=== PATIENT | male | born 1975 | race Caucasian/White ===

== ENCOUNTER → 2017-04-16 14:31 | Outpatient (CLI) | payer MEDICARE, SELFPAY ==
[2017-04-16 14:41] LABS: Microscopic, Urine URINE MICROSCOPIC (MICROSCOPIC)
[2017-04-16 14:53] LABS: Appearance,Urine CLOUDY (Clear); Blood, Urine TRACE-I (Negative); Color,Urine ORANGE (Yellow); Glucose,Urine (UA) Negative (Negative); Ketones,Urine TRACE (Negative); Leukocyte Esterase,Urine 2+ (Negative); Nitrate,Urine POSITIVE (Negative); Protein,Urine TRACE (Negative); Specific Gravity, Urine 1.025 (1.005-1.030); Urobilinogen,Urine >=8.0 EU/dl (0.2)
[2017-04-16 15:17] LABS: Bilirubin,Urine 2+ (Negative)
[2017-04-16 15:45] LABS: Bacteria,Urine 4+ /lpf; Mucus,Urine 2+ /lpf; Squamous Epithelial Cell,Urine Occasional #/hpf (0-5); WBC,Urine 20-50 #/hpf (0-3)
== END ==
PROVIDERS: PCP Family Medicine; Visit Provider Family Medicine
DX: B96.1 Klebsiella pneumoniae [K. pneumoniae] as the cause of diseases classified elsewhere (principal); N39.0 Urinary tract infection, site not specified
CPT/HCPCS: 81001; 87070; 87086; 87088; 87186; 93005

== ENCOUNTER 2017-04-16 14:57 | Observation (INO) | payer MEDICARE, SELFPAY ==
[2017-04-16 14:58] VITALS: BP 108/89; PULSE 142; RESP 22; TEMP 36.5; O2SAT 99; BMI 17.9
--- NOTE | 2017-04-16 15:08 | HMH.EDGENADL ---
ED Disposition Clinical Impression: Chest pain, Palpitation, Dehydration Disposition: Still a Patient Condition on Discharge: Fair Referrals: Osiel Carlson [Primary Care Provider] - - Critical Care Critical Care Time: No Attestation: On 04/16/17, the high probability of a clinically significant, sudden or life threatening deterioration of the following system(s) required my full and direct attention, intervention and personal management. The time I documented below is in addition to time spent performing reported procedures but includes the following listed in this critical care notation. Medical Decision Making - Medical Records Medical records reviewed: Yes: I reviewed the patient's medical records. Vital Signs: 04/16/17 14:58 Temperature 97.7 F Temperature Source Temporal Artery Scan Pulse Rate [Right Brachial] 142 H Respiratory Rate 22 Blood Pressure [Right Arm] 108/89 Blood Pressure Mean [Right Arm] 95 Blood Pressure Source [Right Arm] Automatic Cuff Blood Pressure Position [Right Arm] Sitting 02 Sat by Pulse Oximetry 99 Oxygen Delivery Method Room Air Nasal Cannula - Lab Data Lab Results 04/16/17 14:40: Urine Opiates Screen Negative, Ur Barbituates Screen Negative, Ur Phencyclidine Scrn Negative, Ur Amphetamines Screen Negative, U Methamphetamines Scrn Negative, U Benzodiazepines Scrn Negative, Urine Cocaine Screen Negative, U Marijuana (THC) Screen Negative 04/16/17 15:10: WBC 8.9, RBC 3.16 L, Hgb 11.6 L, Hct 34.6 L, MCV 109.5 H, MCH 36.7 H, MCHC 33.5, RDW 18.3 H, Plt Count 175, MPV 8.3, Neut % (Auto) 54.4, Lymph % (Auto) 36.0, Bureau % (Auto) 6.2, Eos % (Auto) 2.9, Baso % (Auto) 0.6, Neut # (Auto) 4.9, Lymph # (Auto) 3.2, Bureau # (Auto) 0.6, Eos # (Auto) 0.3, Baso # (Auto) 0.1 04/16/17 15:10: Sodium 135 L, Potassium 3.1 L, Chloride 103, Carbon Dioxide 19 L, Anion Gap 16.1 H, BUN 11, Creatinine 0.65 L, Estimated Creat Clear 116, Estimated GFR 137, Est GFR ( Amer) 165, Glucose 127 H, Calcium 9.1, Total Bilirubin 0.7, AST 29, ALT 25, Alkaline Phosphatase 135 H, Total Creatine Kinase 17 L, CK-MB (CK-2) 0.5, CK-MB (CK-2) Rel Index 2.9, Troponin I < 0.02, Total Protein 6.3 L, Albumin 3.4, Globulin 2.9, Albumin/Globulin Ratio 1.2 04/16/17 15:10: Influenza Type A Ag Negative, Influenza Type B Ag Negative 04/16/17 15:10: Magnesium 1.2 L, Plasma/Serum Alcohol 0 Result diagrams: 04/16/17 15:10 04/16/17 15:10 Orders (Tests/Meds): ED MEDICATIONS Discontinued Medications Generic Name Dose Route Start Last Admin Trade Name Freq PRN Reason Stop Dose Admin Sodium Chloride 1,000 mls @ 999 mls/hr 04/16/17 15:30 04/16/17 16:09 Sod Chloride 0.9% 1000ml Bag IV 04/16/17 16:30 999 mls/hr .Q1H1M MARIXA Administration ORDERS Category Date Time Status XR chest 2V Stat Exams 04/16/17 15:12 Taken - Radiology Data #1 Image(s): Chest Image Reviewed: Yes I reviewed the patient's radiology image Preliminary Findings: Normal/NAD - ECG Data Tracing #1 Sinus tachycardia 1 29/min short RI interval, left ventricular strain pattern. - Kevin Inquiry Pt receiving controlled substance: No Kevin was queried for this patient: No Medical Decision Making Narrative: His heart rate started to be after IV fluids is metabolic positive for dehydration and microcytic anemia. His alcohol level was negative and urine drug screen was negative. I discussed the EKG with Dr. Cortes who recommended admission rule out IN. I called the [employer] brand sales consultant for unassigned who recommended IV fluids and the rule out IN protocol. General Adult HPI - General Chief complaint: Arrhythmia/Palpitations Stated complaint: HEART PALPITATIONS Mode of Arrival: Wheelchair Limitations: No Limitations Description of Symptoms (Recalled from ER Triage Doc. by RN): PATIENT - History of Present Illness HPI narrative: 41 years old white male with chronic illnesses, I tried to extract from h
--- NOTE | 2017-04-16 15:12 | XR_ITS ---
XR chest 2V HISTORY: ITS.REASON: CHEST PAIN ORDERING PHYSICIAN: Belen Mark MD PATIENT AGE: 41 years COMPARISON: None available FINDINGS: The cardiomediastinal silhouette and pulmonary vascularity are within normal limits. The lungs are clear without infiltrates, suspicious nodules, or pleural effusions. There is hyperinflation with hyperlucency of the lung suggesting small airway disease/COPD or chronic bronchitis or asthma. Nodular opacity overlies the left fifth rib anteriorly may be due to nipple shadow. Bone plate overlies lower cervical spine No acute bony abnormalities. IMPRESSION: 1. Hyperinflation suggesting small airway disease. 2. Otherwise negative chest
--- NOTE | 2017-04-16 15:16 | ED_ITS ---
ED Disposition Clinical Impression: Chest pain, Palpitation, Dehydration Disposition: Still a Patient Condition on Discharge: Fair Referrals: Osiel Carlson [Primary Care Provider] - - Critical Care Critical Care Time: No Attestation: On 04/16/17, the high probability of a clinically significant, sudden or life threatening deterioration of the following system(s) required my full and direct attention, intervention and personal management. The time I documented below is in addition to time spent performing reported procedures but includes the following listed in this critical care notation. Medical Decision Making - Medical Records Medical records reviewed: Yes: I reviewed the patient's medical records. Vital Signs: 04/16/17 14:58 Temperature 97.7 F Temperature Source Temporal Artery Scan Pulse Rate [Right Brachial] 142 H Respiratory Rate 22 Blood Pressure [Right Arm] 108/89 Blood Pressure Mean [Right Arm] 95 Blood Pressure Source [Right Arm] Automatic Cuff Blood Pressure Position [Right Arm] Sitting 02 Sat by Pulse Oximetry 99 Oxygen Delivery Method Room Air Nasal Cannula - Lab Data Lab Results 04/16/17 14:40: Urine Opiates Screen Negative, Ur Barbituates Screen Negative, Ur Phencyclidine Scrn Negative, Ur Amphetamines Screen Negative, U Methamphetamines Scrn Negative, U Benzodiazepines Scrn Negative, Urine Cocaine Screen Negative, U Marijuana (THC) Screen Negative 04/16/17 15:10: WBC 8.9, RBC 3.16 L, Hgb 11.6 L, Hct 34.6 L, MCV 109.5 H, MCH 36.7 H, MCHC 33.5, RDW 18.3 H, Plt Count 175, MPV 8.3, Neut % (Auto) 54.4, Lymph % (Auto) 36.0, Gordon % (Auto) 6.2, Eos % (Auto) 2.9, Baso % (Auto) 0.6, Neut # (Auto) 4.9, Lymph # (Auto) 3.2, Gordon # (Auto) 0.6, Eos # (Auto) 0.3, Baso # (Auto) 0.1 04/16/17 15:10: Sodium 135 L, Potassium 3.1 L, Chloride 103, Carbon Dioxide 19 L , Anion Gap 16.1 H, BUN 11, Creatinine 0.65 L, Estimated Creat Clear 116, Estimated GFR 137, Est GFR ( Amer) 165, Glucose 127 H, Calcium 9.1, Total Bilirubin 0.7, AST 29, ALT 25, Alkaline Phosphatase 135 H, Total Creatine Kinase 17 L, CK-MB (CK-2) 0.5, CK-MB (CK-2) Rel Index 2.9, Troponin I < 0.02, Total Protein 6.3 L, Albumin 3.4, Globulin 2.9, Albumin/Globulin Ratio 1.2 04/16/17 15:10: Influenza Type A Ag Negative, Influenza Type B Ag Negative 04/16/17 15:10: Magnesium 1.2 L, Plasma/Serum Alcohol 0 Result diagrams: 04/16/17 15:10 04/16/17 15:10 Orders (Tests/Meds): ED MEDICATIONS Discontinued Medications Generic Name Dose Route Start Last Admin Trade Name Freq PRN Reason Stop Dose Admin Sodium Chloride 1,000 mls @ 999 mls/hr 04/16/17 15:30 04/16/17 16:09 Sod Chloride 0.9% 1000ml Bag IV 04/16/17 16:30 999 mls/hr .Q1H1M MARIXA Administration ORDERS Category Date Time Status XR chest 2V Stat Exams 04/16/17 15:12 Taken - Radiology Data #1 Image(s): Chest Image Reviewed: Yes I reviewed the patient's radiology image Preliminary Findings: Normal/NAD - ECG Data Tracing #1 Sinus tachycardia 1 29/min short NC interval, left ventricular strain pattern. - Kevin Inquiry Pt receiving controlled substance: No Kevin was queried for this patient: No Medical Decision Making Narrative: His heart rate started to be after IV fluids is metabolic positive for dehydration and microcytic anemia. His alcohol level was negativ
[2017-04-16 15:22] LABS: Basophils # 0.1 K/mm3 (0-0.2); Basophils % 0.6 % (0.1-2.0); Eosinophils # 0.3 K/mm3 (0.0-0.4); Eosinophils % 2.9 % (0.1-12.0); Hematocrit 34.6 % (42.0-52.0); Hemoglobin 11.6 g/dL (14.1-18.0); Lymphocytes # 3.2 K/mm3 (0.7-4.5); Mean Corpuscular HGB Conc 33.5 g/dL (31.8-35.4); Mean Corpuscular Hemoglobin 36.7 pg (27.0-31.2); Mean Corpuscular Volume 109.5 fl (80-94); Mean Platelet Volume 8.3 fl (7.4-10.4); Monocytes # 0.6 K/mm3 (0.1-1.0); Monocytes % 6.2 % (1.7-9.3); Neutrophils # 4.9 K/mm3 (1.8-7.8); Neutrophils % 54.4 % (37.0-80.0); Platelet Count 175 K/mm3 (142-424); Red Blood Count 3.16 M/mm3 (4.60-6.20); Red Cell Distribution Width 18.3 % (11.5-17.5); White Blood Count 8.9 K/mm3 (4.8-10.8)
[2017-04-16 15:54] LABS: Alanine Aminotransferase 25 U/L (12-78); Albumin Level 3.4 gm/dL (3.4-5.0); Albumin/Globulin Ratio 1.2 (1.1-1.8); Alkaline Phosphatase 135 U/L (46-116); Anion Gap 16.1 mEq/L (5-15); Aspartate Amino Transferase 29 U/L (15-37); Bilirubin,Total 0.7 mg/dL (0.2-1.0); Blood Urea Nitrogen 11 mg/dL (7-18); CKMB Relative Index 2.9 U/L (0-4.0); Calcium 9.1 mg/dL (8.5-10.1); Carbon Dioxide 19 mmol/L (21.0-32.0); Chloride 103 mmol/L (98-107); Creatine Kinase 17 U/L (39-308); Creatine Kinase MB 0.5 mg/ml (0.0-3.6); Creatinine Clearance Estimated 116 mL/min (0-300); Creatinine,Serum 0.65 mg/dL (0.70-1.30); Estimated Glomerular Filt Rate 137 ml/min (>60); GFR (African American) 165 ML/MIN (>60); Globulin 2.9 gm/dl (1.3-3.2); Glucose 127 mg/dL (74-106); Potassium 3.1 mmoL/L (3.5-5.1); Sodium 135 mmol/L (136-145); Total Protein,Serum 6.3 gm/dL (6.4-8.2); Troponin I < 0.02 ng/ml (0.00-0.06)
[2017-04-16 16:02] LABS: Magnesium 1.2 mg/dL (1.4-2.2)
[2017-04-16 16:06] LABS: Amphetamine/Metha Screen,Urine Negative ng/mL (<1000); Barbiturates Screen,Urine Negative ng/mL (<200); Benzodiazepines Screen,Urine Negative ng/mL (200); Cannabinoid Screen,Urine Negative ng/mL (<50); Cocaine Screen,Urine Negative ng/g (<300); Methadone Screen,Urine Negative ng/mL (<300); Opiate Screen,Urine Negative ng/mL (<300); Phencyclidine Screen,Urine Negative ng/mL (<25)
[2017-04-16 16:06] LABS: Ethyl Alcohol 0 mg/dL (0-99)
[2017-04-16 18:54] VITALS: BP 123/72; PULSE 108; RESP 16; TEMP 36.6; O2SAT 100; BMI 17.2
[2017-04-16 18:59] VITALS: BP 128/76; PULSE 72; RESP 18; TEMP 36.8
[2017-04-16 20:00] VITALS: PULSE 100
[2017-04-16 22:02] LABS: Troponin I < 0.02 ng/ml (0.00-0.06)
[2017-04-16 23:34] VITALS: O2SAT 100
[2017-04-17] VITALS (21 sets, daily range): BP systolic 90–123; BP diastolic 56–92; PULSE 76–130; RESP 16–18; TEMP 36.4–37.2; O2SAT 98–100; BMI 17.1
--- NOTE | 2017-04-17 | IR_ITS ---
CARDIAC CATHETERIZATION DATE OF CATHETERIZATION:04/17/2017 2:49 PM PROCEDURES: 1. Left heart catheterization 2. Left ventriculogram 3. Selective coronary angiogram INDICATION FOR TEST: 1. Acute coronary syndrome 2. Highly abnormal EKG 3. Risk factors for coronary artery disease Informed consent was obtained prior to the procedure. COMPLICATIONS: None ESTIMATED BLOOD LOSS: Less than 10 ml. TECHNIQUE: One percent lidocaine used to anesthetize the right anterior aspect of the wrist. The right radial artery was accessed via the Seldinger technique. A 6 Indonesian sheath was placed in the right radial artery. 2.5 mg of verapamil, 800 mcg of nitroglycerin and 5000 U Heparin were given through the arterial sheath. The trap catheter was also used to perform left heart catheterization and left ventriculography. At the end of the procedure the patient was transferred to the post-op holding area in stable condition for arterial sheath removal. ANGIOGRAPHIC RESULTS: 1. The left main artery normal 2. The left anterior descending artery is free of atherosclerotic plaque however there is a proximal mild systolic myocardial bridge and a long mid vessel severe myocardial bridge causing complete vascular obliteration of the mid segment with systole 3. The circumflex artery is a large vessel and has proximal mid vessel 20-30% stenosis 4. The right coronary artery is dominant and has mild 10% proximal stenoses 5. The SHARMA ventriculogram reveals hyperdynamic ventricle with some evidence of possible atypical cavitary obliteration 6. The left ventricular end-diastolic pressure 20 mmHg IMPRESSION: 1. Mild nonflow limiting coronary artery disease . 2. 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 Possible apical hypertrophy and apical catheterization 4. Mildly elevated LVEDP PLAN: 1. Myocardial bridge be managed medically 2. And echocardiogram should be performed to evaluate for hypertrophic obstructive cardiomyopathy 3. Risk factor modification
[2017-04-17 04:31] LABS: Troponin I < 0.02 ng/ml (0.00-0.06)
[2017-04-17 07:06] LABS: Alanine Aminotransferase 16 U/L (12-78); Albumin Level 2.8 gm/dL (3.4-5.0); Albumin/Globulin Ratio 1.2 (1.1-1.8); Alkaline Phosphatase 101 U/L (46-116); Anion Gap 14.8 mEq/L (5-15); Aspartate Amino Transferase 19 U/L (15-37); Bilirubin,Total 0.6 mg/dL (0.2-1.0); Blood Urea Nitrogen 8 mg/dL (7-18); Calcium 8.2 mg/dL (8.5-10.1); Carbon Dioxide 19 mmol/L (21.0-32.0); Chloride 109 mmol/L (98-107); Creatinine Clearance Estimated 164 mL/min (0-300); Creatinine,Serum 0.44 mg/dL (0.70-1.30); Estimated Glomerular Filt Rate 215 ml/min (>60); GFR (African American) 260 ML/MIN (>60); Globulin 2.3 gm/dl (1.3-3.2); Glucose 100 mg/dL (74-106); Potassium 3.8 mmoL/L (3.5-5.1); Sodium 139 mmol/L (136-145); Total Protein,Serum 5.1 gm/dL (6.4-8.2)
[2017-04-17 07:26] LABS: Basophils % 0.2 % (0.1-2.0); Eosinophils # 0.1 K/mm3 (0.0-0.4); Eosinophils % 3.1 % (0.1-12.0); Hematocrit 28.6 % (42.0-52.0); Lymphocytes # 1.8 K/mm3 (0.7-4.5); Lymphocytes % 39.3 K/mm3 (10-50); Mean Corpuscular HGB Conc 32.9 g/dL (31.8-35.4); Mean Corpuscular Hemoglobin 36.6 pg (27.0-31.2); Mean Corpuscular Volume 111.2 fl (80-94); Mean Platelet Volume 8.2 fl (7.4-10.4); Monocytes # 0.3 K/mm3 (0.1-1.0); Monocytes % 5.9 % (1.7-9.3); Neutrophils # 2.3 K/mm3 (1.8-7.8); Neutrophils % 51.4 % (37.0-80.0); Platelet Count 146 K/mm3 (142-424); Red Blood Count 2.57 M/mm3 (4.60-6.20); Red Cell Distribution Width 18.2 % (11.5-17.5); White Blood Count 4.6 K/mm3 (4.8-10.8)
--- NOTE | 2017-04-17 07:33 | HMH.PHAVTE ---
[facility] Pharmacy VTE Monitoring - Patient Demographics Admission date: 04/16/17 Report Date: 04/17/17 Time: 07:33 Allergies/Adverse Reactions: Patient Allergies No Known Allergies Allergy (Unverified 03/03/17 14:02) Height: 1.73 m Weight: 51.341 kg Patient Problems: Current Active Problems Chest pain (Acute) Palpitation (Acute) Dehydration (Acute) - VTE Risk Labs: VTE Related Lab Results Hgb 11.6 g/dL (14.1-18.0) L 04/16/17 15:10 Hct 34.6 % (42.0-52.0) L 04/16/17 15:10 Plt Count 175 K/mm3 (142-424) 04/16/17 15:10 BUN 8 mg/dL (7-18) D 04/17/17 06:30 Creatinine 0.44 mg/dL (0.70-1.30) L D 04/17/17 06:30 Estimated Creat Clear 164 mL/min (0-300) 04/17/17 06:30 Was VTE Risk Assessment Performed: Yes VTE Risk Level: Very Low Risk - Prophylaxis VTE Prophylaxis Ordered?: Yes Types of VTE Prophylaxis: TEDS Knee High Location of Applied Device: Bilateral Lower Extremeties - VTE Diagnosis Confirmed Treatment or plan recommended: Continue Current Treatment
[2017-04-17 07:44] LABS: Hemoglobin 9.4 g/dL (14.1-18.0)
--- NOTE | 2017-04-17 08:14 | HMH.CARDCON2 ---
History of Present Illness Consult date: 04/17/17 Consult reason: chest pain Chief complaint: chest pain History of present illness: 41 yo WM with history of tobacco use was admitted for chest pain. ER visit for complaint of chest pain that is worse with cough, deep breathing or movement. He relates some cough and vomiting recently without fever, chills or diarrhea. Some episodes of palpitations without near syncope or syncope. Difficult historian. 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 Pt denies any cardiac history and no significant family history of CAD. Pt denies DM, HTN or hyperlipidemia. Review of Systems - *Cardiovascular Reports chest pain - *Respiratory Reports shortness of breath - *Gastrointestinal Reports nausea - *Musculoskeletal Reports neck pain [facility] History Medical History: Reports:: MRSA Denies:: Cancer, Diabetes Mellitus Type 1, Diabetes Mellitus Type 2, Internal Pacemaker Laterality Cases: Bilateral: Tonsillectomy Other Surgeries: No: Pacemaker Amputation: No Fractures: Yes - *Social History Educational Level: Attended High School Smoking Status: Current every day smoker Tobacco Type: cigarettes Alcohol Intake: current Alcohol Intake Frequency:: a few times a week Occupational Status: disabled Housing: house Household Members: family - Psychiatric History Expresses thoughts of harming self/others: None Suicide Plan Description: No Plan *Family Hx:: Cancer, Diabetes, Hypertension Meds Home Medications Medication Instructions Recorded Confirmed Type Albuterol Sulfate [Albuterol HFA 3 puff IH TIDP PRN 04/16/17 04/16/17 History Inhaler] Dicyclomine HCl 20 mg PO BID 04/16/17 04/16/17 History Duloxetine HCl [Cymbalta 30mg 30 mg PO BID 04/16/17 04/16/17 History capsule] Gabapentin [Neurontin 600mg 600 mg PO TID 04/16/17 04/16/17 History tablet] Magic Mouthwash [Magic 30 ml PO DAILY 04/16/17 04/16/17 History Mouthwash;240mL Bot[place]] Megestrol Acetate [Megace] 400 mg PO BID 04/16/17 04/16/17 History Metoprolol Tartrate [Lopressor 25 mg PO BID 04/16/17 04/16/17 History 25mg tablet] Omeprazole [Omeprazole 20mg 20 mg PO DAILY 04/16/17 04/16/17 History Capsule] Topiramate [Topiramate] 100 mg PO BID 04/16/17 04/16/17 History Allergies Allergy/AdvReac Type Severity Reaction Status Date / Time No Known Allergies Allergy Unverified 03/03/17 14:02 Exam Vital signs and Labs for Last 24 Hours: Temp Pulse Resp BP Pulse Ox 98.0 F 92 H 16 115/72 100 04/17/17 07:36 04/17/17 07:36 04/17/17 07:36 04/17/17 07:36 04/17/17 07:36 Laboratory Results - last 24 hr 04/16/17 21:40: Troponin I < 0.02 04/17/17 06:30: WBC 4.6 L D, RBC 2.57 L, Hgb 9.4 L D, Hct 28.6 L, MCV 111.2 H, MCH 36.6 H, MCHC 32.9, RDW 18.2 H, Plt Count 146, MPV 8.2, Neut % (Auto) 51.4, Lymph % (Auto) 39.3, Baldwin % (Auto) 5.9, Eos % (Auto) 3.1, Baso % (Auto) 0.2, Neut # (Auto) 2.3, Lymph # (Auto) 1.8, Baldwin # (Auto) 0.3, Eos # (Auto) 0.1, Baso # (Auto) 0.0 04/17/17 06:30: Sodium 139, Potassium 3.8 D, Chloride 109 H, Carbon Dioxide 19 L, Anion Gap 14.8, BUN 8 D, Creatinine 0.44 L D, Estimated Creat Clear 164, Estimated GFR 215, Est GFR ( Amer) 260 D, Glucose 100 D, Calcium 8.2 L, Total Bilirubin 0.6, AST 19 D, ALT 16 D, Alkaline Phosphatase 101, Total Protein 5.1 L, Albumin 2.8 L D, Globulin 2.3, Albumin/Globulin Ratio 1.2 I & O for Last 24 hours: Intake & Output 04/14/17 04/15/17 04/16/17 04/17/17 11:59 11:59 11:59 11:59 Weight 113 lb 3 oz - *Routine Neck Exam Absent: JVD, carotid bruit - *Routine Respiratory Exam Present: CTA bilaterally - *Routine Cardiovascular Exam Present: RRR. Absent: murmur, gallop - *Routine Extremities Exam Absent: edema - *Routine Neurological Exam Present: alert, oriented X3, moving all extremities Results 04/17/17 06:30 04/17/17 06:30 Cardiac Enzymes
--- NOTE | 2017-04-17 08:19 | P.CONS_ITS ---
History of Present Illness Consult date: 04/17/17 Consult reason: chest pain Chief complaint: chest pain History of present illness: 41 yo WM with history of tobacco use was admitted for chest pain. ER visit for complaint of chest pain that is worse with cough, deep breathing or movement. He relates some cough and vomiting recently without fever, chills or diarrhea. Some episodes of palpitations without near syncope or syncope. Difficult historian. 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 Pt denies any cardiac history and no significant family history of CAD. Pt denies DM, HTN or hyperlipidemia. Review of Systems - *Cardiovascular Reports chest pain - *Respiratory Reports shortness of breath - *Gastrointestinal Reports nausea - *Musculoskeletal Reports neck pain [facility] History Medical History: Reports:: MRSA Denies:: Cancer, Diabetes Mellitus Type 1, Diabetes Mellitus Type 2, Internal Pacemaker Laterality Cases: Bilateral: Tonsillectomy Other Surgeries: No: Pacemaker Amputation: No Fractures: Yes - *Social History Educational Level: Attended High School Smoking Status: Current every day smoker Tobacco Type: cigarettes Alcohol Intake: current Alcohol Intake Frequency:: a few times a week Occupational Status: disabled Housing: house Household Members: family - Psychiatric History Expresses thoughts of harming self/others: None Suicide Plan Description: No Plan *Family Hx:: Cancer, Diabetes, Hypertension Meds Home Medications Medication Instructions Recorded Confirmed Type Albuterol Sulfate [Albuterol HFA 3 puff IH TIDP PRN 04/16/17 04/16/17 History Inhaler] Dicyclomine HCl 20 mg PO BID 04/16/17 04/16/17 History Duloxetine HCl [Cymbalta 30mg 30 mg PO BID 04/16/17 04/16/17 History capsule] Gabapentin [Neurontin 600mg 600 mg PO TID 04/16/17 04/16/17 History tablet] Magic Mouthwash [Magic 30 ml PO DAILY 04/16/17 04/16/17 History Mouthwash;240mL Bot[place]le] Megestrol Acetate [Megace] 400 mg PO BID 04/16/17 04/16/17 History Metoprolol Tartrate [Lopressor 25 mg PO BID 04/16/17 04/16/17 History 25mg tablet] Omeprazole [Omeprazole 20mg 20 mg PO DAILY 04/16/17 04/16/17 History Capsule] Topiramate [Topiramate] 100 mg PO BID 04/16/17 04/16/17 History Allergies Allergy/AdvReac Type Severity Reaction Status Date / Time No Known Allergies Allergy Unverified 03/03/17 14:02 Exam Vital signs and Labs for Last 24 Hours: Temp Pulse Resp BP Pulse Ox 98.0 F 92 H 16 115/72 100 04/17/17 07:36 04/17/17 07:36 04/17/17 07:36 04/17/17 07:36 04/17/17 07:36 Laboratory Results - last 24 hr 04/16/17 21:40: Troponin I < 0.02 04/17/17 06:30: WBC 4.6 L D, RBC 2.57 L, Hgb 9.4 L D, Hct 28.6 L, MCV 111.2 H, MCH 36.6 H, MCHC 32.9, RDW 18.2 H, Plt Count 146, MPV 8.2, Neut % (Auto) 51.4, Lymph % (Auto) 39.3, [place] % (Auto) 5.9, Eos % (Auto) 3.1, Baso % (Auto) 0.2, Neut # (Auto) 2.3, Lymph # (Auto) 1.8, [place] # (Auto) 0.3, Eos # (Auto) 0.1, Baso # (Auto) 0.0 04/17/17 06:30: Sodium 139, Potassium 3.8 D, Chloride 109 H, Carbon Dioxide 19 L, Anion Gap 14.8, BUN 8 D, Creatinine 0.44 L D, Estimated Creat Clear 164, Estimated GFR 215, Est GFR ( Amer) 260 D, Glucose 100 D, Calcium 8.2 L , Total Bilirubin 0.6, AST 19 D, ALT 16 D, Alkaline Phosphatase 101, Total Protein 5.1 L, Alb
--- NOTE | 2017-04-17 13:44 | PC.NURSE ---
patient is off floor for heart cath.
--- NOTE | 2017-04-17 14:50 | SUR.PHASEII ---
seed analysis laboratory assistant nurse to floor for recovery of patient.
--- NOTE | 2017-04-17 15:07 | CA_ITS ---
PROCEDURE: 2-D M-mode and color Doppler study INDICATIONS FOR THE TEST: Chest pain+ COPD Heart Murmur Tobacco Smoking+ Palpitations+ Fatigue Syncope+ Edema Hypertension+Diabetes Mellitus Rheumatic Fever SOB DUMONT Obesity Hyperlipidemia Family History HD+ Additional History Dizziness PATIENT INFORMATION HEIGHT: 70 WEIGHT:113 GENDER: Male B/P: 108/89 2-D/M-MODE INTERPRETATION: 2-D MEASUREMENTS OBSERVED VALUES IN CMS Right Ventricular Dimension (RVDd) 2.3 Interventricular Septum (Thickness)(IVsd) 0.7 Left Ventricular Internal Dimensions(LVIDd) 2.8 Left Ventricular Posterior Wall (Thickness)(LVPWd) 0.9 Aortic Root 2.7 Aortic Cusp Separation 2.0 Left Atrial Dimensions (LAD) 3.2 2D 1. Left atrium is normal size, left ventricle is normal size, there is no concentric left ventricular hypertrophy, visually estimated ejection fraction 55% with no obvious regional wall motion abnormality. 2. The right atrium and right ventricle are relatively normal size and function 3. The aortic valve is minimally thickened and fibrosed. 4. The mitral and tricuspid valve are structurally normal. 5. The pulmonic valve is poorly visualized. 6. There is small pericardial effusion and anterior echo free space seen DOPPLER INTERROGATION: Doppler interrogation of the aortic, mitral and tricuspid valvular presence of mild mitral and tricuspid regurgitation, tricuspid regurgitant jet velocity is insufficient for calculation of the right ventricular systolic pressure, diastolic parameters are inconclusive. CONCLUSION: 1. Normal left ventricular size, visually estimated ejection fraction 55% with no obvious regional wall motion abnormality, diastolic parameters are inconclusive. 2. Mild mitral and tricuspid regurgitation 3. Small pericardial effusion and anterior echo free space seen.
--- NOTE | 2017-04-17 16:48 | HMH.HPDC ---
General - General Admission date: 04/16/17 Discharge date: 04/17/17 *Admission Date: 04/16/17 *Chief complaint: chest pain *History of present illness: 41 yo WM with history of tobacco use was admitted for chest pain. ER visit for complaint of chest pain that is worse with cough, deep breathing or movement. He relates some cough and vomiting recently without fever, chills or diarrhea. Some episodes of palpitations without near syncope or syncope. Difficult historian. 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 Pt denies any cardiac history and no significant family history of CAD. Pt denies DM, HTN or hyperlipidemia. [facility] History Medical History: Reports:: MRSA Denies:: Cancer, Diabetes Mellitus Type 1, Diabetes Mellitus Type 2, Internal Pacemaker Laterality Cases: Bilateral: Tonsillectomy Other Surgeries: No: Pacemaker Amputation: No Fractures: Yes - *Social History Educational Level: Attended High School Smoking Status: Current every day smoker Tobacco Type: cigarettes Alcohol Intake: current Alcohol Intake Frequency:: a few times a week Occupational Status: disabled Housing: house Household Members: family - Psychiatric History Expresses thoughts of harming self/others: None Suicide Plan Description: No Plan *Family Hx:: Cancer, Diabetes, Hypertension Review of Systems - Constitutional Denies body ache(s) - Eyes Denies blurry vision - ENT Denies dental pain Comments: blind - *Cardiovascular Reports chest pain, Reports chest pain at rest, Reports shortness of breath - *Respiratory Denies chest congestion - *Gastrointestinal Denies loose stools - *Musculoskeletal Denies decreased muscle mass - Integumentary/Breasts Denies bleeding lesions, Denies rash - *Neurologic Denies abnormal movements, Denies dizziness - Psychiatric Denies abnormal sleep pattern, Denies confusion - Endocrine Denies flushing - Hematologic/Lymphatic Denies enlarged lymph nodes Exam Vital signs and Labs for Last 24 Hours: Temp Pulse Resp BP Pulse Ox 98.0 F 88 16 118/78 98 04/17/17 11:49 04/17/17 14:45 04/17/17 14:47 04/17/17 14:45 04/17/17 14:47 Laboratory Results - last 24 hr 04/16/17 21:40: Troponin I < 0.02 04/17/17 06:30: WBC 4.6 L D, RBC 2.57 L, Hgb 9.4 L D, Hct 28.6 L, MCV 111.2 H, MCH 36.6 H, MCHC 32.9, RDW 18.2 H, Plt Count 146, MPV 8.2, Neut % (Auto) 51.4, Lymph % (Auto) 39.3, [place] % (Auto) 5.9, Eos % (Auto) 3.1, Baso % (Auto) 0.2, Neut # (Auto) 2.3, Lymph # (Auto) 1.8, [place] # (Auto) 0.3, Eos # (Auto) 0.1, Baso # (Auto) 0.0 04/17/17 06:30: Sodium 139, Potassium 3.8 D, Chloride 109 H, Carbon Dioxide 19 L, Anion Gap 14.8, BUN 8 D, Creatinine 0.44 L D, Estimated Creat Clear 164, Estimated GFR 215, Est GFR ( Amer) 260 D, Glucose 100 D, Calcium 8.2 L, Total Bilirubin 0.6, AST 19 D, ALT 16 D, Alkaline Phosphatase 101, Total Protein 5.1 L, Albumin 2.8 L D, Globulin 2.3, Albumin/Globulin Ratio 1.2 I & O for Last 24 hours: Intake & Output 04/15/17 04/16/17 04/17/17 04/18/17 11:59 11:59 11:59 11:59 Intake Total 0 / 0 Balance 0 / 0 Weight 113 lb 3 oz - Constitutional no acute distress, thin - *Routine HEENT Exam Head: Present: normocephalic ENT: Present: mucous membranes moist - *Routine Neck Exam Present: supple, full ROM - *Routine Respiratory Exam Present: CTA bilaterally - *Routine Cardiovascular Exam Present: RRR - *Routine Abdominal Exam Present: guarding - *Routine Skin Exam Present: intact - *Routine Neurological Exam Present: alert, oriented X3 Hospital Course Hospital Course: cath report ANGIOGRAPHIC RESULTS: 1. The left main artery normal 2. The left anterior descending artery is free of atherosclerotic plaque however there is a proximal mild systolic myocardial bridge and a long mid vessel severe myocardial bridge causing complete vascular obliteration of the mid segment wit
--- NOTE | 2017-04-17 19:41 | PC.NURSE ---
1733 DURING ASSESSMENT OF RADIAL SITE, PT'S WRISTLET AND SPLINT HAD BEEN ADJUSTED AND SPLINT WAS REMOVED. PT'S BEHAVIOR AND RESPONSE TO QUESTIONS ASKED BY STAFF CONCERNING WHY HIS WRISTLET/SPLINT HAD BEEN MOVED WERE STRANGE. INSTRUCTIONS GIVEN TO PT NOT TO USE RIGHT ARM/WRIST AND TO NOT TOUCH OR TAKE OFF ANYTHING. NO S/S OF BLEEDING OR HEMATOMA. NO C/O PAIN. I WAITED ADDITIONAL TIME BEFORE REMOVING ANY PRESSURE FROM WRISTLET TO PREVENT ANY POSSIBLE BLEEDING. THE REMAINING OF THE PRESSURED WAS SLOWLY DECREASED, COMPLETED AT 1910. NO S/S OF BLEEDING. ONCOMING RN PERFORMED DRESSING CHANGE. WILL CONTINUE TO MONITOR
[2017-04-18 19:23] LABS: Vitamin B12 616 pg/mL (232-1245)
[2017-04-19 09:21] LABS: Peripheral Smear Review Scanned Result
[2017-04-19 17:26] LABS: Folate <2.0 ng/mL (>3.0)
== END 2017-04-17 20:30 | disposition home or self-care (01) ==
LOC: ER 16:45 → 2ND 20:06
PROVIDERS: Internal Medicine; Nurse Practitioner Family; Admitting Provider Emergency Medicine; Emergency Provider Emergency Medicine; Family Provider Family Medicine; PCP Family Medicine; Visit Provider Emergency Medicine
DX: R07.9 Chest pain, unspecified (principal); Z72.0 Tobacco use; Z79.899 Other long term (current) drug therapy
CPT/HCPCS: 36415; 71046; 80053; 80305; 81001; 82550; 82553; 82607; 82746; 83735; 84484; 85025; 87070; 87086; 87088; 87186; 87275; 87276; 93005; 93041; 93306; 93458; 99281; C1725; C1769; G0378; J1644; Q9967